=== PATIENT | male | born 1985 | race Caucasian/White ===

== ENCOUNTER 2016-10-02 14:10 | Emergency (ER) | payer OTHER ==
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
--- NOTE | ~2016-10-02 | CR58 ---
[facility] A Service of [facility] & [facility] RADIOLOGY TEXT RESULTS PATIENT: KALPESH LÓPEZ LOCATION: [facility] : 89 UNIT #: [id number] AGE: [address]: Ashley Shaw APRN SEX: M ORDER DR: [id number] [facility] [address] [place], [place] [address] [id number] E MR#: [id number] Acc #: [id number] NAME: KALPESH LÓPEZ. : 1985 SEX: M STUDY DATE/TIME: 10/02/2016 13:31 UNIT: [facility] ROOM: STUDY DESCRIPTION: CR Cervical Spine 2 or 3 Views Attending Physician: Ashley Shaw A.P.R.N. Referring Physician: No Primary Care Physician Ordering Physician: Alexis Land M.D. Primary Care Physician: No Primary Care Physician MEDICAL IMAGING REPORT This report is preliminary unless electronic signature is present EXAM Cervical spine, 4 views, 10/02/2016. HISTORY Neck pain for 3 days with no known injury. FINDINGS AP and lateral projections of the cervical spine show satisfactory preservation of the cervical lordosis. The cervical soft tissues are normal. All anterior and posterior elements in the cervical area are anatomically normal without identifiable fracture, dislocation, malignant lytic or sclerotic change, or arthritis. There is no congenital defect apparent. IMPRESSION Normal cervical spine. Dictated by... Armen Antony M.D. THIS IS AN ELECTRONICALLY VERIFIED REPORT Armen Antony M.D. at 10/03/2016 10:25 AM AKIRA/ludin TD: 10/02/2016 15:14 JOB #: [id number] MEDICAL IMAGING REPORT Page 1 of 1 COPY
--- NOTE | ~2016-10-02 | CR151 ---
[facility] A Service of [facility] & [facility] RADIOLOGY TEXT RESULTS PATIENT: KALPESH LÓPEZ LOCATION: [facility] : 89 UNIT #: [id number] AGE: [address]: Ashley Shaw APRN SEX: M ORDER DR: [id number] [facility] [address] [place], [place] [address] [id number] E MR#: [id number] Acc #: [id number] NAME: KALPESH LÓPEZ. : 1985 SEX: M STUDY DATE/TIME: 10/02/2016 13:35 UNIT: [facility] ROOM: STUDY DESCRIPTION: CR Hip Min 2 Views Rt Attending Physician: Ashley Shaw A.P.R.N. Referring Physician: Primary Care Physician No Ordering Physician: Alexis Land M.D. Primary Care Physician: Primary Care Physician No MEDICAL IMAGING REPORT This report is preliminary unless electronic signature is present EXAM Right hip, 2 views, 10/02/2016 HISTORY Right hip pain for 3 days with no known injury. FINDINGS AP and oblique examination of the hip shows adequate mineralization of the bones and a normal anatomic relationship of the femoral head with the acetabulum. There are no hypertrophic changes, fractures, dislocation, or joint capsular distension. No radiopaque foreign body is present about the soft tissues of the hip. IMPRESSION Normal hip. Dictated by... Armen Antony M.D. THIS IS AN ELECTRONICALLY VERIFIED REPORT Armen Antony M.D. at 10/03/2016 10:25 AM AKIRA/braxton TD: 10/02/2016 15:59 JOB #: [id number] MEDICAL IMAGING REPORT Page 1 of 1 COPY
[~2016-10-02 14:10] MED LIST: BACITRACIN30 GM TOP; E-MYCIN250 MG PO; IBUPROFEN PO
== END 2016-10-02 14:43 | disposition home or self-care (01) ==
LOC: CFTX 14:10
DX: S39.012A Strain of muscle, fascia and tendon of lower back, initial encounter (principal); S16.1XXA Strain of muscle, fascia and tendon at neck level, initial encounter; S70.01XA Contusion of right hip, initial encounter; F17.200 Nicotine dependence, unspecified, uncomplicated; V49.00XA Driver injured in collision with unspecified motor vehicles in nontraffic accident, initial encounter
CPT/HCPCS: 72040; 72100; 73502; 99284

== ENCOUNTER 2017-03-04 06:13 | Emergency (ER) | payer OTHER | END 2017-03-04 06:45 | disposition home or self-care (01) | LOC: CED 06:13 | DX: H92.02 Otalgia, left ear (principal); F17.200 Nicotine dependence, unspecified, uncomplicated | CPT/HCPCS: 99283 ==